=== PATIENT | female | born 1965 | race Asian ===

== ENCOUNTER 2019-11-06 21:35 | Emergency (ER) | payer MEDICAID ==
[2019-11-06] MEDS ORDERED: Sodium Chloride 0.9% 1,000 ML IV ONE (22:24)
[2019-11-06] MEDS ORDERED: Morphine 4 MG/ML Syringe IVPUSH ONE (22:24)
[2019-11-06] MEDS ORDERED: Famotidine 20 MG/2 ML SDV IVPUSH ONE (22:24)
[2019-11-06] MEDS ORDERED: Ondansetron 4 MG/2 ML SDV IVPUSH ONE (22:24)
--- NOTE | 2019-11-06 22:43 | EDM.PDOC ---
ED HPI GENERAL MEDICAL PROBLEM - General Chief Complaint: Abdominal Pain Stated Complaint: ABDOMINAL PAIN Time Seen by Provider: 11/06/19 21:42 Source of Information: Reports: Patient History Limitations: Reports: No Limitations - History of Present Illness INITIAL COMMENTS - FREE TEXT/NARRATIVE: 54F PMHx hysterectomy presents for midepigastric abdominal pain worsening for last 3 days associated with nausea and decreased PO. No back pain. No fevers. No urinary symptoms. 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: Musculoskeletal History: Reports: None Neurological History: Reports: None Psychiatric History: Reports: None Endocrine/Metabolic History: Reports: None Hematologic History: Reports: None Immunologic History: Reports: None Oncologic (Cancer) History: Reports: None Dermatologic History: Reports: None - Infectious Disease History Infectious Disease History: Reports: None - Past Surgical History Head Surgeries/Procedures: Reports: None Female Surgical History: Reports: Hysterectomy Social & Family History - Tobacco Use Smoking Status *Q: Never Smoker - Recreational Drug Use Recreational Drug Use: No ED ROS GENERAL - Review of Systems Review Of Systems: Comprehensive ROS is negative, except as noted in HPI. ED EXAM, GI/ABD - Physical Exam Exam: See Below Exam Limited By: No Limitations General Appearance: Alert, No Apparent Distress Head: Atraumatic Respiratory/Chest: No Respiratory Distress, Lungs Clear, Normal Breath Sounds Cardiovascular: Normal Peripheral Pulses, Regular Rate, Rhythm GI/Abdominal Exam: Normal Bowel Sounds, Soft, Other (RUQ TTP, midepigastric TTP, no guarding/rebound) Neurological: Alert Skin Exam: Warm, Dry Course - Vital Signs Last Recorded V/S: Last Vital Signs Temp 96.0 F L 11/06/19 22:11 Pulse 68 11/07/19 00:19 Resp 14 11/07/19 00:19 BP 129/68 11/07/19 00:19 Pulse Ox 96 11/07/19 00:19 - Orders/Labs/Meds Labs: Laboratory Tests 11/06/19 11/06/19 11/06/19 Range/Units 22:02 22:02 22:30 WBC 9.25 (4.0-11.0) K/uL RBC 4.66 (4.30-5.90) M/uL Hgb 15.2 (12.0-16.0) g/dL Hct 43.3 (36.0-46.0) % MCV 92.9 (80.0-98.0) fL MCH 32.6 H (27.0-32.0) pg MCHC 35.1 (31.0-37.0) g/dL RDW Std Deviation 40.3 (28.0-62.0) fl RDW Coeff of Valerie 12 (11.0-15.0) % Plt Count 230 (150-400) K/uL MPV 9.90 (7.40-12.00) fL Neut % (Auto) 66.1 (48.0-80.0) % Lymph % (Auto) 24.5 (16.0-40.0) % Dukes % (Auto) 8.1 (0.0-15.0) % Eos % (Auto) 0.9 (0.0-7.0) % Baso % (Auto) 0.4 (0.0-1.5) % Neut # (Auto) 6.1 H (1.4-5.7) K/uL Lymph # (Auto) 2.3 (0.6-2.4) K/uL Dukes # (Auto) 0.8 (0.0-0.8) K/uL Eos # (Auto) 0.1 (0.0-0.7) K/uL Baso # (Auto) 0.0 (0.0-0.1) K/uL Nucleated RBC % 0.0 /100WBC Nucleated RBCs # 0 K/uL Sodium (136-145) mmol/L Potassium (3.5-5.1) mmol/L Chloride (98-107) mmol/L Carbon Dioxide (21.0-32.0) mmol/L BUN (7.0-18.0) mg/dL Creatinine (0.6-1.0) mg/dL Est Cr Clr Drug Dosing Estimated GFR (MDRD) ml/min Glucose (74-106) mg/dL Calcium (8.5-10.1) mg/dL Magnesium (1.8-2.4) mg/dL Total Bilirubin (0.2-1.0) mg/dL AST (15-37) IU/L ALT (14-63) IU/L Alkaline Phosphatase (46-116) U/L Troponin I (0.000-0.056) ng/mL Total Protein (6.4-8.2) g/dL Albumin (3.4-5.0) g/dL Globulin (2.6-4.0) g/dL Albumin/Globulin Ratio (0.9-1.6) Lipase (73-393) U/L Urine Color DARK YELLOW Urine Appearance CLEAR Urine pH 5.5 (5.0-8.0) Ur Specific [place] >= 1.030 (1.001-1.035) Urine Protein NEGATIVE (NEGATIVE) mg/dL Urine Glucose (UA) NEGATIVE (NEGATIVE) mg/dL Urine Ketones 15 H (NEGATIVE) mg/dL Urine Occult Blood SMALL H (NEGATIVE) Urine Nitrite NEGATIVE (NEGATIVE) Urine Bilirubin SMALL H (NEGATIVE) Urine Ictotest NEGATIVE Urine Urobilinogen 2.0 H (<2.0) EU/dL Ur Leukocyte Esterase NEGATIVE (NEGATIVE) Urine RBC 2-4 (0-2/HPF) Urine WBC 0-2 (0-5/HPF) Ur Epithelial Cells FEW (NONE-FEW) Urine Bacteria FEW (NEGATIVE) Urine Mucus MODERATE (NONE-MOD) Urine HCG, Qual NEGATIVE (NEGATIVE) 11/06/19 Range/Units 22:30 WBC (4.0-11.0) K/uL RBC (4.30-5.90) M/uL Hgb (12.0-16.0) g/dL Hct (36.0-46.0) % MCV (80.0-98.0) fL MCH (27.0-32.0) pg MCHC (31.0-37.0) g/dL RDW Std Deviation (28.0-62.0) fl RDW Coeff of Valerie (11.0-15.0) % Plt Count (150-400) K/uL MPV (7.40-12.00) fL Neut % (Auto) (48.0-80.0) % Lymph % (Auto) (16.0-40.0) % Dukes % (Auto) (0.0-15.0) % Eos % (Auto) (0.0-7.0) % Baso % (Auto) (0.0-1.5) % Neut # (Auto) (1.4-5.7) K/uL Lymph # (Auto) (0.6-2.4) K/uL Dukes # (Auto) (0.0-0.8) K/uL Eos # (Auto) (0.0-0.7) K/uL Baso # (Auto) (0.0-0.1) K/uL Nucleated RBC % /100WBC Nucleated RBCs # K/uL Sodium 135 L (136-145) mmol/L Potassium 3.2 L (3.5-5.1) mmol/L Chloride 100 (98-107) mmol/L Carbon Dioxide 28.8 (21.0-32.0) mmol/L BUN 13 (7.0-18.0) mg/dL Creatinine 0.9 (0.6-1.0) mg/dL Est Cr Clr Drug Dosing TNP Estimated GFR (MDRD) > 60.0 ml/min Glucose 131 H (74-106) mg/dL Calcium 8.4 L (8.5-10.1) mg/dL Magnesium 1.9 (1.8-2.4) mg/dL Total Bilirubin 0.5 (0.2-1.0) mg/dL AST 22 (15-37) IU/L ALT 30 (14-63) IU/L Alkaline Phosphatase 65 (46-116) U/L Troponin I < 0.050 (0.000-0.056) ng/mL Total Protein 7.7 (6.4-8.2) g/dL Albumin 3.5 (3.4-5.0) g/dL Globulin 4.2 H (2.6-4.0) g/dL Albumin/Globulin Ratio 0.8 L (0.9-1.6) Lipase 88 (73-393) U/L Urine Color Urine Appearance Urine pH (5.0-8.0) Ur Specific [place] (1.001-1.035) Urine Protein (NEGATIVE) mg/dL Urine Glucose (UA) (NEGATIVE) mg/dL Urine Ketones (NEGATIVE) mg/dL Urine Occult Blood (NEGATIVE) Urine Nitrite (NEGATIVE) Urine Bilirubin (NEGATIVE) Urine Ictotest Urine Urobilinogen (<2.0) EU/dL Ur Leukocyte Esterase (NEGATIVE) Urine RBC (0-2/HPF) Urine WBC (0-5/HPF) Ur Epithelial Cells (NONE-FEW) Urine Bacteria (NEGATIVE) Urine Mucus (NONE-MOD) Urine HCG, Qual (NEGATIVE) Meds: Medications Discontinued Medications Generic Name Dose Route Start Last Admin Trade Name Freq PRN Reason Stop Dose Admin Famotidine 20 mg 11/06/19 22:24 11/06/19 22:44 Pepcid IVPUSH 11/06/19 22:25 20 mg ONETIME ONE Administration Sodium Chloride 1,000 mls @ 999 mls/hr 11/06/19 22:24 11/06/19 22:43 Normal Saline IV 11/06/19 23:24 999 mls/hr .Bolus ONE Administration Iopamidol 100 ml 11/06/19 23:41 11/06/19 23:42 Isovue-370 (76%) IVPUSH 11/06/19 23:42 100 ml ONETIME STA Administration Morphine Sulfate 4 mg 11/06/19 22:24 11/06/19 22:45 Morphine IVPUSH 11/06/19 22:25 4 mg ONETIME ONE Administration Ondansetron HCl 4 mg 11/06/19 22:24 11/06/19 22:43 Zofran IVPUSH 11/06/19 22:25 4 mg ONETIME ONE Administration - Re-Assessments/Exams Free Text/Narrative Re-Assessment/Exam: 11/06/19 22:50 Patient presents w/ midepigastric/RUQP. Will get labs, CT A/P. Will treat symptomatically and reassess. Free Text/Narrative Re-Assessment/Exam: 11/07/19 00:31 Patient feeling much better. CT without evidence of acute pathology, just ileitis. Will d/c with sympatomic treatment. Return precautions for inability to tolerate PO, fever, worsening/continued pain discussed. Patient udnerstands. Departure - Departure Time of Disposition: 00:30 Disposition: Home, Self-Care 01 Condition: Good Clinical Impression: Gastroenteritis - Discharge Information *PRESCRIPTION DRUG MONITORING PROGRAM REVIEWED*: Not Applicable *COPY OF PRESCRIPTION DRUG MONITORING REPORT IN PATIENT BARBARA: Not Applicable Prescriptions: Ondansetron [Zofran ODT] 4 mg PO Q6H PRN 3 Days #10 tab.dis PRN Reason: Nausea Instructions: Viral Gastroenteritis, Adult, [id number] Referrals: pmd, pmd [Other] Forms: ED Department Discharge Additional Instructions: The following information is given to patients seen in the emergency department who are being discharged to home. This information is to outline your options for follow-up care. We provide all patients seen in our emergency department with a follow-up referral. The need for follow-up, as well as the timing and circumstances, are variable depending upon the specifics of your emergency department visit. If you don't have a primary care physician on staff, we will provide you with a referral. We always advise you to contact your personal physician following an emergency department visit to inform them of the circumstance of the visit and for follow-up with them and/or the need for any referrals to a consulting specialist. The emergency department will also refer you to a specialist when appropriate. This referral assures that you have the opportunity for follow-up care with a specialist. All of these measure are taken in an effort to provide you with optimal care, which includes your follow-up. Under all circumstances we always encourage you to contact your private physician who remains a resource for coordinating your care. When calling for follow-up care, please make the office aware that this follow-up is from your recent emergency room visit. If for any reason you are refused follow-up, please contact the [facility] Emergency Department at and asked to speak to the emergency department charge nurse. Sepsis Event Note (ED) - Evaluation Sepsis Screening Result: No Definite Risk - Focused Exam Vital Signs: Vital Signs Temp Pulse Resp BP Pulse Ox 11/07/19 00:19 68 14 129/68 96 11/06/19 23:44 66 14 134/68 95 11/06/19 22:11 96.0 F L 72 16 140/59 L 95
[2019-11-06 23:09] LABS: BLOOD UREA NITROGEN,BUN 13 mg/dL (7.0-18.0); CARBON DIOXIDE,CO2 28.8 mmol/L (21.0-32.0); CHLORIDE,CL 100 mmol/L (98-107); GLUCOSE RANDOM 131 mg/dL (74-106); LIPASE 88 U/L (73-393); POTASSIUM,K 3.2 mmol/L (3.5-5.1); SODIUM,NA 135 mmol/L (136-145)
[2019-11-06] MEDS ORDERED: Iopamidol 755 Mg/ML 100 ML Bottle IVPUSH STA (23:41)
--- NOTE | 2019-11-07 00:08 | CT ---
INDICATION: MIDEPIGASTRIC ABDOMINAL PAIN RADIATING DOWNWARD CT ABDOMEN AND PELVIS WITH CONTRAST TECHNIQUE: Multidetector CT imaging was performed through the abdomen and pelvis following intravenous contrast administration using 100 mL Isovue 370 coronal and sagittal reconstructions were generated. COMPARISON: None. FINDINGS: Lower chest: Minimal basilar atelectatic changes. Liver: Within normal limits. Gallbladder and bile ducts: No gallbladder wall thickening or calcified gallstones. No biliary dilation identified. Pancreas: Unremarkable. Spleen: Normal. Adrenals: No nodules or masses. Kidneys, ureters, and urinary bladder: Small nonobstructing stone in the upper pole of the right kidney. No renal masses or hydronephrosis. Mild diffuse wall thickening of the urinary bladder, in part likely due to nondistention. Gastrointestinal tract: Abnormal wall thickening of the distal ileum in the right lower quadrant, including the terminal ileum, with adjacent mild mesenteric edema. Normal appendix. No definite colon wall thickening. No bowel obstruction. Vascular structures: Normal for age. Peritoneum: [id number] free fluid in the lower pelvis. No loculated collection suggestive of abscess. No free air identified. Lymph nodes: No pathologically enlarged nodes identified. Reproductive organs: Mildly enlarged and lobulated uterus consistent with multiple uterine fibroids. Bones: Normal for age. IMPRESSION: 1. Abnormal wall thickening of the distal small bowel including the terminal ileum with adjacent mesenteric edema and associated free fluid. The most likely differential considerations include Crohn`s disease versus infectious enteritis. Bowel ischemia and neoplasm are less likely considerations. 2. Nonacute additional findings as detailed above. DORY WHITNEY MD [employer] Dictated by Joel Whitney MD @ 11/07/2019 12:01:28 AM Dictated by: Joel Whitney MD @ 11/07/2019 00:05:59 (Electronically Signed)
== END 2019-11-07 00:40 | disposition home or self-care (01) ==
LOC: MW.ED 21:35
DX: K52.9 Noninfective gastroenteritis and colitis, unspecified (principal)
CPT/HCPCS: 36415; 74177; 80053; 81001; 81025; 83690; 83735; 84484; 85025; 96361; 96374; 96375; 99284; J2270; J2405; J3490; J7030; Q9967; 99282